=== PATIENT | female | born 1965 | race African-American/Black ===

== ENCOUNTER 2016-10-28 03:49 | Emergency (ER) | payer MEDICAID ==
[~2016-10-28] VITALS: Ht 154.9 cm; Wt 121.1 kg
[2016-10-28 04:04] VITALS: BP_SYST 159
[2016-10-28] MEDS ORDERED: PROMETHAZINE 6.25 MG/ CODEINE 10 MG/ 5 ML PO ONE (04:30)
[2016-10-28 05:10] VITALS: BP_SYST 159
== END 2016-10-28 05:10 | disposition home or self-care (01) ==
LOC: SED 03:49
DX: R05 Cough (principal); I10 Essential (primary) hypertension; E03.9 Hypothyroidism, unspecified
CPT/HCPCS: 71020-TC; 99284